=== PATIENT | male | born 1985 | race Caucasian/White ===

== ENCOUNTER 2016-09-11 13:25 | Emergency (ER) | payer OTHER ==
[2016-09-11 13:51] VITALS: BP 127/71; PULSE 66; TEMP 98.6; BMI 27.1
[2016-09-11] MEDS ORDERED: IBUPROFEN 600 MG TABLET (FP) PO ONE ×2 (14:08→14:09)
--- NOTE | 2016-09-11 14:11 | PDOC ---
History of Present Illness - General Chief Complaint: Injury Stated Complaint: LT SHOULDER INJURY Time Seen by Provider: 09/11/16 13:51 History Source: Patient Exam Limitations: No Limitations - History of Present Illness Initial Comments: 09/11/16 14:08 31 yr Jacquelyn RODRIGEZ states he injured left shoulder pushing /forcing open a door this am. No previous shoulder injury. Occurred: reports: just prior to arrival Severity: reports: mild Upper Extremity Pain Location: right: shoulder Past History - Past Medical History Allergies/Adverse Reactions: Allergies Allergy/AdvReac Type Severity Reaction Status Date / Time No Known Allergies Allergy Verified 09/11/16 13:49 Home Medications: Ambulatory Orders NK [No Known Home Medication] 07/29/15 Other medical history: none - Immunization History Immunization Up to Date: No - Psycho/Social/Smoking Cessation Hx Anxiety: No Suicidal Ideation: No Smoking History: Never smoked Have you smoked in the past 12 months: No Information on smoking cessation initiated: No Hx Alcohol Use: No Drug/Substance Use Hx: No Substance Use Type: None Review of Systems - Review of Systems Able to Perform ROS?: Yes Is the patient limited Syrian proficient: No Constitutional: No: Symptoms Reported HEENTM: No: Symptoms Reported Respiratory: No: Symptoms reported Cardiac (ROS): No: Symptoms Reported ABD/GI: No: Symptoms Reported : No: Symptoms Reported Musculoskeletal: Yes: Symptoms Reported *Physical Exam - Vital Signs Last Vital Signs Temp Pulse Resp BP Pulse Ox 98.6 F 66 18 127/71 100 09/11/16 13:49 09/11/16 13:49 09/11/16 13:49 09/11/16 13:49 09/11/16 13:49 - Physical Exam General Appearance: Yes: Nourished, Appropriately Dressed HEENT: positive: EOMI, THOMAS Neck: negative: Tender Respiratory/Chest: positive: Lungs Clear, Normal Breath Sounds Cardiovascular: positive: Regular Rhythm, Regular Rate Musculoskeletal: positive: Normal Inspection Extremity: positive: Tender (anterior left shoulder , pain with extension and abduction, no crepitus, nv intact ) Integumentary: positive: Normal Color, Dry, Warm Neurologic: positive: Fully Oriented, Alert, Normal Mood/Affect, Normal Response , Motor Strength 5/5 Procedures - Splinting Sling: Yes ED Treatment Course - RADIOLOGY Radiology Studies Ordered: Category Date Time Status SHOULDER-LEFT [RAD] Stat Radiology 09/11/16 13:52 Taken Medical Decision Making - Medical Decision Making 09/11/16 22:50 cc: left shoulder injury at work today will xray to r/o fracutre dislocation motrin for pain 09/11/16 22:50 sling, ice strict follow up with the orthopedist for clearance to return to work pt agrees with plan understands the plan *DC/Admit/Observation/Transfer Diagnosis at time of Disposition: Left shoulder strain Qualifiers: Encounter type: initial encounter Qualified Code(s): S46.912A - Strain of unspecified muscle, fascia and tendon at shoulder and upper arm level, left arm , initial encounter - Discharge Dispostion Disposition: HOME Condition at time of disposition: Fair - Referrals Referrals: Manpreet Salas MD [Staff Physician] - - Patient Instructions Printed Discharge Instructions: How to Use a Sling Additional Instructions: take motrin 600mg every 6hrs for pain as needed apply ice every 2hrs for 20 minutes to the area of pain for the next 2 days while awake use the sling during the day remove to sleep and bathe follow up with for cleareance to return to work - Post Discharge Activity Work/School Note: Back to Work
== END 2016-09-11 14:13 | disposition home or self-care (01) ==
LOC: JERFT 13:25
DX: S46.812A Strain of other muscles, fascia and tendons at shoulder and upper arm level, left arm, initial encounter (principal); X50.9XXA Other and unspecified overexertion or strenuous movements or postures, initial encounter; Y93.89 Activity, other specified; Y92.89 Other specified places as the place of occurrence of the external cause; Y99.0 Civilian activity done for income or pay
CPT/HCPCS: 73030-TC-LT; 99281-25

== ENCOUNTER 2018-12-17 18:34 | Emergency (ER) | payer OTHER ==
[2018-12-17] MEDS ORDERED: KETOROLAC TROMETHAMINE 60 MG/2 ML VIAL IM ONE (19:07)
[2018-12-17] MEDS ORDERED: KETOROLAC TROMETHAMINE 60 MG/2 ML VIAL ONE (19:08)
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
[2018-12-17] MEDS ORDERED: CYCLOBENZAPRINE HCL 10 MG TABLET (FP) PO ONE (19:26)
[2018-12-17] MEDS ORDERED: CYCLOBENZAPRINE HCL 10 MG TABLET (FP) ONE (19:29)
[2018-12-17 20:05] VITALS: BP 90/65; PULSE 74; TEMP 98; BMI 27.1
== END 2018-12-17 19:23 | disposition home or self-care (01) ==
LOC: JERFT 18:34
PROC: 3E0233Z Introduction of Anti-inflammatory into Muscle, Percutaneous Approach (ICD-10-PCS; principal; 2018-12-17)
DX: M54.2 Cervicalgia (principal); S16.1XXA Strain of muscle, fascia and tendon at neck level, initial encounter; X58.XXXA Exposure to other specified factors, initial encounter; Y93.9 Activity, unspecified; Y92.9 Unspecified place or not applicable; Y99.0 Civilian activity done for income or pay
CPT/HCPCS: 99282-25

== ENCOUNTER 2019-06-02 15:39 | Emergency (ER) | payer OTHER ==
[2019-06-02 17:01] VITALS: BP 113/63; PULSE 56; TEMP 98.2; BMI 27.1
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
== END 2019-06-02 18:30 | disposition home or self-care (01) ==
LOC: JER 15:39 → JERFT 15:39
DX: S59.802A Other specified injuries of left elbow, initial encounter (principal); S50.02XA Contusion of left elbow, initial encounter; W22.8XXA Striking against or struck by other objects, initial encounter; Y93.89 Activity, other specified; Y92.89 Other specified places as the place of occurrence of the external cause; Y99.0 Civilian activity done for income or pay
CPT/HCPCS: 73070-TC-LT-FY; 99281-25

== ENCOUNTER 2021-04-11 22:58 | Emergency (ER) | payer OTHER ==
[2021-04-11 23:08] VITALS: BP 118/79; PULSE 80; TEMP 98.3; BMI 27.1
[2021-04-12] MEDS ORDERED: LIDOCAINE 5% TOPICAL PATCH TP ONE (00:06)
[2021-04-12] MEDS ORDERED: ACETAMINOPHEN 500 MG TABLET (FP) PO ONE (00:06)
[2021-04-12] MEDS ORDERED: ACETAMINOPHEN 325 MG TABLET (FP) ONE (00:08)
[2021-04-12] MEDS ORDERED: LIDOCAINE 5% TOPICAL PATCH ONE (00:08)
[2021-04-12] MEDS ORDERED: LIDOCAINE PATCH REMOVAL MC SCH (22:00)
== END 2021-04-12 01:12 | disposition home or self-care (01) ==
LOC: JER 22:58
DX: M54.6 Pain in thoracic spine (principal)
CPT/HCPCS: 72050-TC-FY; 72070-TC-FY; 99283-25

== ENCOUNTER 2021-12-26 13:45 | Emergency (ER) | payer OTHER ==
[2021-12-26 13:51] VITALS: BP 117/70; PULSE 75; TEMP 98.5; BMI 26.4
== END 2021-12-26 15:36 | disposition home or self-care (01) ==
LOC: JERFT 13:45
DX: S92.912A Unspecified fracture of left toe(s), initial encounter for closed fracture (principal); W20.8XXA Other cause of strike by thrown, projected or falling object, initial encounter
CPT/HCPCS: 73630-TC-LT; 99283-25

== ENCOUNTER 2022-08-07 17:14 | Emergency (ER) | payer OTHER ==
[2022-08-07 17:28] VITALS: BP 105/70; PULSE 97; RESP 18; TEMP 99; BMI 27.1
[2022-08-07] MEDS ORDERED: IBUPROFEN 600 MG TABLET (FP) PO ONE (17:51)
== END 2022-08-07 18:05 | disposition home or self-care (01) ==
LOC: JERFT 17:14
DX: S39.012A Strain of muscle, fascia and tendon of lower back, initial encounter (principal); M25.561 Pain in right knee; X50.0XXA Overexertion from strenuous movement or load, initial encounter; Y99.0 Civilian activity done for income or pay
CPT/HCPCS: 99282-25

== ENCOUNTER 2022-12-18 10:06 | Emergency (ER) | payer OTHER ==
[2022-12-18 10:13] VITALS: BP 107/71; PULSE 65; RESP 18; TEMP 98; BMI 23.1
[2022-12-18] MEDS ORDERED: ACETAMINOPHEN 500 MG TABLET (FP) PO ONE (10:50)
[2022-12-18] MEDS ORDERED: LIDOCAINE 5% TOPICAL PATCH TP ONE (10:50)
[2022-12-18] MEDS ORDERED: KETOROLAC TROMETHAMINE 30 MG/1 ML VIAL IM ONE (10:51)
[2022-12-18] MEDS ORDERED: LIDOCAINE 5% TOPICAL PATCH ONE (10:53)
[2022-12-18] MEDS ORDERED: KETOROLAC TROMETHAMINE 30 MG/1 ML VIAL ONE (10:54)
[2022-12-18] MEDS ORDERED: ACETAMINOPHEN 500 MG TABLET (FP) ONE (10:54)
[2022-12-18] MEDS ORDERED: LIDOCAINE PATCH REMOVAL MC SCH (22:00)
== END 2022-12-18 11:15 | disposition home or self-care (01) ==
LOC: JERFT 10:06 → JER 10:06 → JERFT 11:15
PROC: 3E0233Z Introduction of Anti-inflammatory into Muscle, Percutaneous Approach (ICD-10-PCS; principal; 2022-12-18)
DX: M54.6 Pain in thoracic spine (principal); X50.0XXA Overexertion from strenuous movement or load, initial encounter
CPT/HCPCS: 99284-25

== ENCOUNTER 2023-03-18 04:11 | Day surgery (SDC) | payer OTHER ==
[2023-03-17 08:31] VITALS: BMI 26.4
[~2023-03-18 04:11] MED LIST: BUPIVACAINE HCL/PF 0.5% (5MG/ML) 10 ML VIAL IJ ONE; IOHEXOL 180 MG/1 ML ML IJ ONE; LIDOCAINE HCL 1% PRESERVATIVE FREE - 30ML VIAL IJ ONE
[2023-03-18] MEDS ORDERED: LIDOCAINE HCL/PF 1% SDV 5ML VIAL ONE (07:20)
[2023-03-18] MEDS ORDERED: BUPIVACAINE HCL/PF 0.5% (5MG/ML) 10 ML VIAL ONE (07:20)
[2023-03-18] MEDS ORDERED: ACETAMINOPHEN 500 MG TABLET (FP) PO PRN (10:27)
[2023-03-18] MEDS ORDERED: BUPIVACAINE HCL/PF 0.5% (5MG/ML) 10 ML VIAL IJ ONE (10:32)
[2023-03-18 11:02] VITALS: RESP 20
[2023-03-18 12:04] VITALS: BP 110/70; PULSE 58; TEMP 98
== END 2023-03-18 11:35 | disposition home or self-care (01) ==
LOC: JASU-SURG 04:11
PROVIDERS: ATTEND Pain Medicine Pain Medicine
PROC: 3E0T3BZ Introduction of Anesthetic Agent into Peripheral Nerves and Plexi, Percutaneous Approach (ICD-10-PCS; principal; 2023-03-18 11:30)
DX: M47.812 Spondylosis without myelopathy or radiculopathy, cervical region (principal)
CPT/HCPCS: 76000-TC-FY

== ENCOUNTER 2023-04-15 04:54 | Day surgery (SDC) | payer OTHER ==
[2023-04-13 12:45] VITALS: BMI 26.4
[2023-04-15] MEDS ORDERED: LIDOCAINE HCL/PF 1% SDV 5ML VIAL ONE (07:20)
[2023-04-15] MEDS ORDERED: BUPIVACAINE HCL/PF 0.5% (5MG/ML) 10 ML VIAL ONE (07:20)
[2023-04-15 07:29] VITALS: RESP 18
[2023-04-15] MEDS ORDERED: BUPIVACAINE HCL/PF 0.5% (5 MG/ML) 30 ML VIAL IJ ONE (09:05)
[2023-04-15 09:46] VITALS: BP 110/75; PULSE 51; TEMP 98.9
[2023-04-15] MEDS ORDERED: ACETAMINOPHEN 500 MG TABLET (FP) PO PRN (09:57)
== END 2023-04-15 09:40 | disposition home or self-care (01) ==
LOC: JASU-SURG 04:54
PROVIDERS: ATTEND Pain Medicine Pain Medicine
PROC: 3E0T33Z Introduction of Anti-inflammatory into Peripheral Nerves and Plexi, Percutaneous Approach (ICD-10-PCS; 2023-04-15)
PROC: BR14YZZ Fluoroscopy of Cervical Facet Joint(s) using Other Contrast (ICD-10-PCS; 2023-04-15)
PROC: 3E0T3BZ Introduction of Anesthetic Agent into Peripheral Nerves and Plexi, Percutaneous Approach (ICD-10-PCS; principal; 2023-04-15 08:30)
DX: M47.812 Spondylosis without myelopathy or radiculopathy, cervical region (principal)
CPT/HCPCS: 76000-TC-FY